=== PATIENT | female | born 1960 | race Caucasian/White ===

== ENCOUNTER 2021-02-03 16:36 | Emergency (ER) | payer BC, SELFPAY ==
[2021-02-03 16:38] VITALS: BP 207/100; PULSE 79; RESP 20; TEMP 36.8; O2SAT 98; BMI 36.8
--- NOTE | 2021-02-03 16:47 | HMH.EDGENADL ---
ED Disposition Clinical Impression: Left ureteral calculus Disposition: Home, Self-Care Condition on Discharge: Good Instructions: DI for Kidney Stones Additional Instructions: Take Flomax as prescribed. Percocet as needed for pain. Zofran as needed for nausea. Additional instructions for KIDNEY STONE (URETERAL CALCULUS): See Dr. Santacruz as soon as possible for further evaluation. Drink plenty of fluids. Strain your urine and save any stones you catch. Return immediately if you develop a fever or have uncontrollable vomiting or uncontrollable pain. Additional instructions for CONTROLLED SUBSTANCES: You have been prescribed a medication that is a controlled substance. Controlled substances include pain medications known as opiates and sedative nerve medications known as benzodiazepines. Tramadol, fioricet, and gabapentin are also controlled substances. Some common opiates include: Codeine (such as Tylenol #3) Hydrocodone (Vicodin, Lortab, Lorcet, Norman) Oxycodone (Percocet, Percodan, Oxycodone, Oxy IR) Some common benzodiazepines include: Diazepam (Valium) Lorazepam (Ativan) Alprazolam (Xanax) Clonazepam (Klonopin) Oxazepam (Serax) All of these controlled substances are highly addictive and frequently abused. Misuse can and frequently does lead to addiction as well as overdose and . Medication should be stored in a locked cabinet or other secure storage unit. Do not store the medication in a motor vehicle. Short term supplies, 3 days or less, are prescribed because of the highly addictive nature of the medication. Any of the controlled substance medication NOT taken should be disposed of properly and NOT SAVED. The recommended method of disposing of unused medications is: Place the medicines in a sealable plastic bag. If the medicine is a solid, crush it or add water to dissolve it. Add something undesirable (cat litter, coffee grounds, etc.) Dispose of sealed bag in household trash Do not flush or pour unused medicines down a sink or drain. Controlled substances should not be shared, given away or sold. Because of the addictive nature and frequent abuse, these medications are sometimes stolen. These medications should be kept in a safe place where they cannot be stolen. Do not keep them in your car or purse. Lost or stolen prescriptions for controlled substances WILL NOT BE REFILLED in this emergency department, regardless of whether a police report was filed. Prescriptions: Oxycodone HCl/Acetaminophen [Percocet 5/325mg tablet] 1 tab PO Q6HP PRN #10 tab PRN Reason: Moderate To Severe Pain Transmission Status: Received by [id number] Tamsulosin HCl [Flomax 0.4mg capsule] 0.4 mg PO HS #10 cap.er.24h Transmission Status: Received by [id number] Ondansetron [Zofran 4mg ODT] 4 mg PO TIDP PRN #10 tab.rapdis PRN Reason: Nausea And Vomiting Transmission Status: Received by [id number] Referrals: Keysha Lira MD [Primary Care Provider] - Markus Santacruz MD [Staff Physician] - - Critical Care Critical Care Time: No Attestation: On 02/03/21, the high probability of a clinically significant, sudden or life threatening deterioration of the following system(s) required my full and direct attention, intervention and personal management. The time I documented below is in addition to time spent performing reported procedures but includes the following listed in this critical care notation. Medical Decision Making - Elijah Inquiry Pt receiving controlled substance: Yes Elijah was queried for this patient: Yes Risks and benefits of using a controlled substance: were discussed with pt by me Vital Signs: 02/03/21 16:38 Temperature 98.2 F Temperature Source Oral Pulse Rate [Right Radial] 79 Respiratory Rate 20 Blood Pressure [Right Arm] 207/100 H Blood Pressure Mean [Right Arm] 135 Blood Pressure Source [Right Arm] Automatic Cuff Blood Pre
--- NOTE | 2021-02-03 16:50 | CT_ITS ---
PROCEDURE INFORMATION: Exam: CT Abdomen And Pelvis Without Contrast Exam date and time: 02/03/2021 4:50 PM Age: 60 years old Clinical indication: Abdominal pain; Flank; Left lower quadrant (llq); Additional info: Abd pain, vomiting, left flank pain TECHNIQUE: Imaging protocol: Computed tomography of the abdomen and pelvis without contrast. Radiation optimization: All CT scans at this facility use at least one of these dose optimization techniques: automated exposure control; mA and/or kV adjustment per patient size (includes targeted exams where dose is matched to clinical indication); or iterative reconstruction. COMPARISON: No relevant prior studies available. FINDINGS: Lungs: No acute findings in the visualized lower lungs. No consolidation. Liver: Mild hepatomegaly. Fatty liver, diffuse mild diminished attenuation in the liver. Gallbladder and bile ducts: The gallbladder is unremarkable. No calcified stones or biliary dilatation. Pancreas: Mild fatty infiltrative changes in the pancreas. No ductal dilatation. Spleen: Upper normal spleen. Adrenal glands: The adrenal glands are normal. Kidneys and ureters: Moderately severe left hydronephrosis and hydroureter. There is a calcified obstructing stone at the left ureterovesical junction, measuring at least 5 x 4 x 4 mm, with HU density of 651. This is visible on the telescope operator topogram. This is seen on axial series 3, images 96-97, sagittal series 602, images 67-68, coronal series 601, images 56-57 . There is prominent left perinephric and periureteral edema which may be due to the obstruction or superimposed UTI. There are some additional punctate, nonobstructing left lower pole renal calculi. A punctate, faintly calcified stone suggested in the upper right kidney on coronal series 601, image 53. There is no hydronephrosis, hydroureter, or calcified obstructing ureteral stone seen on the right. Stomach and bowel: Mild diverticulosis coli. No focal findings of acute diverticulitis. Most of the colon is empty and contracted which likely accounts for slightly thickened appearance. Minimal small intestinal air-fluid levels, no dilated loops or mucosal thickening. No acute findings in the stomach. Appendix: A normal appendix is identified. Intraperitoneal space: There is no significant free intraperitoneal fluid. There is no free intraperitoneal air. Vasculature: The vasculature demonstrates scattered mild atherosclerotic calcification. No abdominal aortic aneurysm. Lymph nodes: Unremarkable. No enlarged lymph nodes. Urinary bladder: The bladder appears within normal limits for the degree of distension, nearly empty and not well evaluated. There is a calcified stone at the left ureterovesical junction, please see the kidney-ureter section. Reproductive: Uterus and left ovary are unremarkable. The right ovary pass a polycystic appearance, containing some residual cystic lesions of up to 1.9 cm, coronal series 601, image 58. Bones/joints: Spinal degenerative changes, lumbar facet arthropathy greatest L4-L5 with grade 1 anterolisthesis. Multilevel disc narrowing and spondylosis greatest in the lower thoracic spine. Soft tissues: There is a tiny fatty umbilical hernia; no herniated bowel loops.There are no soft tissue masses or fluid collections. IMPRESSION: 1. 5 mm calcified stone obstructs the left ureterovesical junction, with moderately severe left hydronephrosis and hydroureter. 2. Prominent left perinephric and periureteral edema may be due to the obstruction, or superimposed UTI. 3. Additional tiny nonobstructing bilateral renal calculi. 4. Hepatomegaly, fatty liver. 5. Polycysti
[2021-02-03 17:02] LABS: Microscopic, Urine URINE MICROSCOPIC (MICROSCOPIC)
--- NOTE | 2021-02-03 17:05 | PC.NURSE ---
Pt returned from CT
[2021-02-03 17:06] LABS: Appearance,Urine SL CLOUDY (Clear); Bilirubin,Urine Negative (Negative); Blood, Urine 2+ (Negative); Color,Urine YELLOW (Yellow); Glucose,Urine (UA) Negative (Negative); Ketones,Urine 1+ (Negative); Leukocyte Esterase,Urine Negative (Negative); Nitrate,Urine Negative (Negative); Protein,Urine TRACE (Negative); Specific Gravity, Urine >= 1.030 (1.005-1.030); Urobilinogen,Urine 0.2 EU/dl (0.2)
[2021-02-03 17:06] LABS: Basophils # 0.1 K/mm3 (0-0.2); Basophils % 0.5 % (0.1-2.0); Eosinophils # 0.1 K/mm3 (0.0-0.4); Eosinophils % 0.3 % (0.1-12.0); Hematocrit 44.3 % (37.0-47.0); Hemoglobin 14.9 g/dL (12.2-16.2); Lymphocytes # 1.7 K/mm3 (0.7-4.5); Lymphocytes % 10.3 % (10-50); Mean Corpuscular HGB Conc 33.7 g/dL (31.8-35.4); Mean Corpuscular Hemoglobin 28.8 pg (27.0-31.2); Mean Corpuscular Volume 85.3 fl (81-99); Mean Platelet Volume 7.9 fl (7.4-10.4); Monocytes # 0.7 K/mm3 (0.1-1.0); Monocytes % 4.4 % (1.7-9.3); Neutrophils # 13.7 K/mm3 (1.8-7.8); Neutrophils % 84.6 % (37.0-80.0); Platelet Count 281 K/mm3 (142-424); Red Blood Count 5.19 M/mm3 (4.20-5.40); Red Cell Distribution Width 13.3 % (11.5-17.5); White Blood Count 16.2 K/mm3 (4.8-10.8)
[2021-02-03 17:14] LABS: Alanine Aminotransferase 20 U/L (12-78); Albumin Level 4.9 g/dl (3.5-5.0); Albumin/Globulin Ratio 1.5 (1.1-1.8); Alkaline Phosphatase 74 U/L (38-126); Amylase 62 U/L (30-110); Anion Gap 14.2 mEq/L (5-15); Aspartate Amino Transferase 26 U/L (14-36); Bilirubin,Total 0.6 mg/dl (0.2-1.3); Blood Urea Nitrogen 17 mg/dl (7-17); Calcium 9.6 mg/dl (8.4-10.2); Carbon Dioxide 28 mmol/L (22.0-30.0); Chloride 103 mmol/L (98-107); Creatinine Clearance Estimated 91 mL/min (50-200); Estimated Glomerular Filt Rate 56 ml/min (>60); GFR (African American) 68 ML/MIN (>60); Globulin 3.3 g/dL (1.3-3.2); Glucose 121 mg/dl (74-100); Lipase 42 U/L (23-300); MANUAL DIFFERENTIAL MANUAL DIFFERENTIAL (MANUAL DIFF); Potassium 4.2 mmoL/L (3.5-5.1); Sodium 141 mmol/L (136-145); Total Protein,Serum 8.2 g/dl (6.3-8.2)
[2021-02-03 17:19] LABS: Bacteria,Urine Trace /lpf; WBC,Urine Occasional #/hpf (0-3)
[2021-02-03 17:29] LABS: Lymphocytes % 14 % (10-50); Monocytes % 5 % (2-9); Neutrophils % 78 % (42-76); Total Cells Counted 100
[2021-02-03 17:30] LABS: Platelet Estimate Normal; RBC Morphology Normal
[2021-02-03 18:35] VITALS: BP 155/71; PULSE 85; RESP 18; TEMP 36.8; O2SAT 97
[2021-02-03 18:39] VITALS: BP 160/84; PULSE 62; O2SAT 93
== END 2021-02-03 18:45 | disposition home or self-care (01) ==
PROVIDERS: Emergency Provider Emergency Medicine; PCP Internal Medicine
DX: N20.1 Calculus of ureter (principal); I10 Essential (primary) hypertension
CPT/HCPCS: 74176; 80053; 81001; 82150; 83690; 85007; 85025; 96365; 99283; J2405

== ENCOUNTER → 2021-02-08 09:07 | Outpatient (CLI) | payer BC, SELFPAY ==
[2021-02-15 14:37] LABS: Size 4X5 mm; Specimen Type NOT PROVIDED
[2021-02-15 14:38] LABS: Ca oxalate dihydrate 10
== END ==
PROVIDERS: Visit Provider Urology
DX: N20.0 Calculus of kidney (principal)
CPT/HCPCS: 82370

== ENCOUNTER 2023-07-17 10:36 | Outpatient (POV) | payer BC, SELFPAY | END 2023-07-17 23:59 | disposition home or self-care (01) | LOC: SC 10:36 | PROVIDERS: PCP Internal Medicine; Visit Provider Dermatology | DX: Z00.00 Encounter for general adult medical examination without abnormal findings (principal) ==

== ENCOUNTER 2023-08-13 09:41 | Outpatient (CLI) | payer BC, SELFPAY ==
--- NOTE | 2023-08-13 09:48 | XR_ITS ---
FINAL REPORT CLINICAL HISTORY: cough, wheezing COMPARISON: None FINDINGS: PA and lateral views of the chest are obtained. There is no prior exam for comparison. The cardiac and mediastinal silhouettes are within normal limits. Right lower lobe airspace disease is concerning for pneumonia. There is no pleural effusion, pneumothorax, or acute osseous abnormality. IMPRESSION: Right lower lobe airspace disease concerning for pneumonia. Recommend radiographic follow-up to resolution. Reviewed, Interpreted and Dictated by Su Rutherford MD Transcribed by Mila Calzada Authenticated and [facility]
[2023-08-13 17:45] LABS: Coronavirus 19, PCR Not Detected (NotDetected); Influenza A, PCR Not Detected (NotDetected); Influenza B, PCR Not Detected (NotDetected)
== END 2023-08-13 23:59 ==
LOC: RAD 09:42
PROVIDERS: PCP Internal Medicine; Visit Provider Student in an Organized Health Care Education/Training Program
DX: R05.8 Other specified cough (principal); R50.9 Fever, unspecified; R06.02 Shortness of breath; R09.89 Other specified symptoms and signs involving the circulatory and respiratory systems
CPT/HCPCS: 71046; 87636

== ENCOUNTER 2023-08-13 09:51 | Outpatient (CLI) | payer BC, SELFPAY | END 2023-08-13 23:59 | LOC: LAB.DROPOF 08-15 09:52 | PROVIDERS: PCP Student in an Organized Health Care Education/Training Program; Visit Provider Student in an Organized Health Care Education/Training Program | DX: R05.8 Other specified cough (principal) | CPT/HCPCS: 87636 ==

== ENCOUNTER 2023-09-27 15:25 | Outpatient (CLI) | payer BC, SELFPAY ==
--- NOTE | 2023-09-27 15:28 | XR_ITS ---
FINAL REPORT CLINICAL HISTORY: cough x 9 days, chest congestion COMPARISON: 08/13/2023 FINDINGS: TWO-VIEW CHEST The heart size is normal. The mediastinum is normal. The lungs are clear. There is no pneumothorax. IMPRESSION: No acute cardiopulmonary process. Reviewed, Interpreted and Dictated by Rony Espinoza III, MD Transcribed by Deepa Armstrong Authenticated and [facility]
== END 2023-09-27 23:59 ==
LOC: RAD 15:26
PROVIDERS: PCP Internal Medicine; Visit Provider Student in an Organized Health Care Education/Training Program
DX: R05.9 Cough, unspecified (principal); R09.89 Other specified symptoms and signs involving the circulatory and respiratory systems
CPT/HCPCS: 71046